=== PATIENT | female | born 1990 | race Caucasian/White ===

== ENCOUNTER 2018-08-01 11:44 | Emergency (ER) | payer MEDICAID ==
[2018-08-01] MEDS: ONDANSETRON (ODT) 4 MG TAB ODT (14:26)
[2018-08-01] MEDS: DEXAMETHASONE 10 MG/ML 1 ML INJ IM (14:27)
[2018-08-01] MEDS: CLINDAMYCIN 300 MG INJ IM (14:27)
[2018-08-01] MEDS ORDERED: CLINDAMYCIN 600 MG INJ IM (14:30)
[2018-08-01] MEDS: ACETAMINOPHEN 325 MG TAB PO (14:42)
== END 2018-08-01 14:44 | disposition home or self-care (01) ==
LOC: FTE 11:44
DX: J36 Peritonsillar abscess (principal)
CPT/HCPCS: 96372; 99284-25